=== PATIENT | male | born 1945 | race Caucasian/White ===

== ENCOUNTER 2017-11-02 19:40 | Inpatient (IN) | payer OTHER ==
[~2017-11-02] VITALS: Ht 177.8 cm; Wt 85.0 kg
[~2017-11-02 19:40] MED LIST: ALLOPURINOL100 MG PO; ASPIR 8181 M1 PO; CARDIZEM30 MG PO; CENTRUM SILVER1 EAC3 PO; CYANOCOBALAM1000 MCG PO; DIOVAN320 MG PO; ELIQUIS5 MG PO; FISH OIL 1,0001 EAC7 PO; GABAPENTIN300 MG PO; LIPITOR80 MG PO; METOPROLOL TART25 MG PO; PLAVIX75 MG PO; RANITIDINE HCL150 MG PO; TYLENOL ARTHRI650 MG PO; VITAMIN D32000 UNI1 PO
[2017-11-02 20:29] LABS: HEMATOCRIT 32.7 % (38.0-50.0); HEMOGLOBIN 10.8 G/DL (12.5-16.6); MCH 35.4 PG (29.0-34.0); MCV 107.2 FL (86-99); PLATELET COUNT 113 K/uL (156-360); RBC DIS.WIDTH-CV 15.4 % (11.8-14.6); RBC DIS.WIDTH-SD 61.4 % (39-53); RED BLOOD COUNT 3.05 M/uL (4.00-5.50); WHITE BLOOD COUNT 7.9 K/uL (4.1-10.2)
[2017-11-02 20:36] LABS: INTER. NORMALIZED RATIO 1.2
[2017-11-02 20:39] LABS: PTT 30.5 SEC (25-37)
[2017-11-02 20:46] LABS: CHLORIDE 101 mEq/L (99-109); POTASSIUM 4.2 mEq/L (3.7-5.4); SODIUM 132 mEq/L (136-147)
[2017-11-02 20:48] LABS: GLUCOSE 105 mg/dL (70-99)
[2017-11-02 20:50] LABS: TROP-I INTERPRETATION NEGATIVE; TROPONIN-I 0.02 ng/mL (0.0-0.30)
[2017-11-02 20:52] LABS: CREATININE 0.9 mg/dL (0.6-1.3); GFR ESTIMATE (CALCULATED) > 59 mL/min/ (58.99-99999)
[2017-11-02 20:53] LABS: UREA NITROGEN (BUN) 15 mg/dL (9-23)
[2017-11-02] MEDS ORDERED: CARDIZEM120 MG PO (21:30)
[2017-11-02] MEDS ORDERED: DIOVAN320 MG PO (21:31)
[2017-11-02] MEDS ORDERED: PROAIR RESPICL90 MCG IH (21:32)
[2017-11-02] MEDS ORDERED: HYDROCORTISONE30 G1 TP (21:32)
[2017-11-02] MEDS ORDERED: VISTARIL50 MG PO (21:33)
[2017-11-02] MEDS ORDERED: PLAVIX75 MG PO (21:37)
[2017-11-03] MEDS ORDERED: ASCORBIC ACID500 M3 PO (00:02)
[2017-11-03 06:30] LABS: TROP-I INTERPRETATION NEGATIVE; TROPONIN-I 0.02 ng/mL (0.0-0.30)
[2017-11-03 12:14] LABS: TROP-I INTERPRETATION NEGATIVE; TROPONIN-I 0.03 ng/mL (0.0-0.30)
[2017-11-03 17:42] LABS: TROP-I INTERPRETATION NEGATIVE; TROPONIN-I 0.01 ng/mL (0.0-0.30)
[2017-11-03 17:43] VITALS: BP 125/61
[2017-11-03 19:29] VITALS: BP 116/53
[2017-11-03 19:35] VITALS: BP 128/62
[2017-11-03 23:27] LABS: APPEARANCE SL.HAZY ((CLEAR)); BILIRUBIN NEGATIVE; BLOOD NEGATIVE; COLOR YELLOW ((YELLOW)); GLUCOSE (STRIP) 50; KETONES NEGATIVE; LEUKOCYTES NEGATIVE; NITRITE NEGATIVE; PROTEIN (STRIP) NEGATIVE; SPECIFIC GRAVITY 1.018 (1.000-1.030); UROBILINOGEN 0.2 MG/DL (0.2-1.0)
[2017-11-03 23:33] LABS: BACTERIA NONE SEEN /HPF; EPITHELIAL CELLS RARE /HPF; MUCUS TRACE /LPF; RED BLOOD CELLS 0-5 /HPF (0-5); UCUL ADDED? NO; WHITE BLOOD CELLS 0-5 /HPF (0-5)
[2017-11-04] VITALS (7 sets, daily range): BP systolic 106–140; BP diastolic 53–64
[2017-11-04 05:43] LABS: BASOPHIL (%) 0 % (0-1); EOSINOPHIL (%) 0 % (0-5); HEMATOCRIT 27.6 % (38.0-50.0); HEMOGLOBIN 9.1 G/DL (12.5-16.6); IMMATURE GRANULOCYTE (%) 0.1 % (0.0-0.7); LYMPHOCYTE (%) 13.7 % (15-42); MCH 35.1 PG (29.0-34.0); MCV 106.6 FL (86-99); MONOCYTE (%) 7.4 % (3-12); MONOCYTE COUNT 0.5 K/uL (0-0.8); NEUTROPHIL (%) 78.8 % (45-76); NEUTROPHIL COUNT 5.6 K/uL (1.8-6.4); PLATELET COUNT 106 K/uL (156-360); RBC DIS.WIDTH-CV 15.6 % (11.8-14.6); RBC DIS.WIDTH-SD 61.4 % (39-53); RED BLOOD COUNT 2.59 M/uL (4.00-5.50); WHITE BLOOD COUNT 7.2 K/uL (4.1-10.2)
[2017-11-04 06:07] LABS: CHLORIDE 102 MEQ/L (99-109); CREATININE 1.3 MG/DL (0.6-1.3); GFR ESTIMATE (CALCULATED) 58 mL/min/ (58.99-99999); GLUCOSE 157 mg/dL (70-99); POTASSIUM 3.9 MEQ/L (3.7-5.4); SODIUM 134 MEQ/L (136-147)
[2017-11-04 06:08] LABS: UREA NITROGEN (BUN) 29 mg/dL (9-23)
[2017-11-05 03:37] VITALS: BP 129/59
[2017-11-05 08:52] LABS: HEMATOCRIT 32.1 % (38.0-50.0); HEMOGLOBIN 10.4 G/DL (12.5-16.6); MCH 34.8 PG (29.0-34.0); MCHC 32.4 G/DL (30.0-36.0); MCV 107.4 FL (86-99); PLATELET COUNT 119 K/uL (156-360); RBC DIS.WIDTH-CV 15.8 % (11.8-14.6); RBC DIS.WIDTH-SD 62.7 % (39-53); RED BLOOD COUNT 2.99 M/uL (4.00-5.50); WHITE BLOOD COUNT 8.2 K/uL (4.1-10.2)
[2017-11-05 08:53] VITALS: BP 177/83
[2017-11-05 09:15] LABS: CHLORIDE 102 MEQ/L (99-109); CREATININE 1.1 MG/DL (0.6-1.3); GFR ESTIMATE (CALCULATED) > 59 mL/min/ (58.99-99999); GLUCOSE 164 mg/dL (70-99); SODIUM 140 MEQ/L (136-147); UREA NITROGEN (BUN) 27 mg/dL (9-23)
[2017-11-05 10:50] VITALS: BP 147/64
[2017-11-05 17:25] VITALS: BP 140/76
[2017-11-05 19:30] VITALS: BP 142/67
[2017-11-05 23:38] VITALS: BP 128/60
[2017-11-06 03:32] VITALS: BP 113/57
[2017-11-06 06:23] LABS: BASOPHIL (%) 0 % (0-1); EOSINOPHIL (%) 0 % (0-5); HEMATOCRIT 29.7 % (38.0-50.0); HEMOGLOBIN 9.8 G/DL (12.5-16.6); IMMATURE GRANULOCYTE (%) 0.2 % (0.0-0.7); LYMPHOCYTE (%) 14.3 % (15-42); LYMPHOCYTE COUNT 1.2 K/uL (1.0-2.8); MCH 35.1 PG (29.0-34.0); MCV 106.5 FL (86-99); MONOCYTE COUNT 0.3 K/uL (0-0.8); NEUTROPHIL (%) 81.5 % (45-76); NEUTROPHIL COUNT 6.8 K/uL (1.8-6.4); PLATELET COUNT 113 K/uL (156-360); RBC DIS.WIDTH-CV 15.4 % (11.8-14.6); RBC DIS.WIDTH-SD 60.8 % (39-53); RED BLOOD COUNT 2.79 M/uL (4.00-5.50); WHITE BLOOD COUNT 8.3 K/uL (4.1-10.2)
[2017-11-06 06:57] LABS: CHLORIDE 107 MEQ/L (99-109); CREATININE 0.8 MG/DL (0.6-1.3); GFR ESTIMATE (CALCULATED) > 59 mL/min/ (58.99-99999); GLUCOSE 143 mg/dL (70-99); SODIUM 139 MEQ/L (136-147); UREA NITROGEN (BUN) 35 mg/dL (9-23)
[2017-11-06 07:51] VITALS: BP 142/74
[2017-11-06] MEDS ORDERED: CEFTIN500 MG PO (13:51)
[2017-11-06] MEDS ORDERED: AZITHROMYCIN500 M1 PO (13:51)
[2017-11-06] MEDS ORDERED: MUCINEX600 MG PO (13:52)
[2017-11-06] MEDS ORDERED: PREDNISONE20 MG PO (13:52)
[2017-11-06] MEDS ORDERED: FUROSEMIDE40 MG PO (13:52)
[2017-11-06] MEDS ORDERED: LOPRESSOR50 MG PO (13:55)
[2017-11-06] MEDS ORDERED: DIGOXIN125 MCG PO (13:57)
== END 2017-11-06 15:05 | disposition home or self-care (01) | DRG 291 ==
LOC: EME 19:40 → 4EAST 11-03 00:10 → EDOF 11-03 00:10 → ENRESERV 11-03 00:12 → 4EAST 11-03 17:32
PROVIDERS: Hospitalist; Internal Medicine; Physician Assistant Medical
DX: I50.9 Heart failure, unspecified (principal); J44.1 Chronic obstructive pulmonary disease with (acute) exacerbation; J18.9 Pneumonia, unspecified organism; I48.91 Unspecified atrial fibrillation; J44.0 Chronic obstructive pulmonary disease with (acute) lower respiratory infection; J96.01 Acute respiratory failure with hypoxia; I25.2 Old myocardial infarction; I11.0 Hypertensive heart disease with heart failure; I73.9 Peripheral vascular disease, unspecified; Z87.891 Personal history of nicotine dependence; Z98.61 Coronary angioplasty status; Z98.1 Arthrodesis status; Z86.73 Personal history of transient ischemic attack (TIA), and cerebral infarction without residual deficits; I25.10 Atherosclerotic heart disease of native coronary artery without angina pectoris; Z79.01 Long term (current) use of anticoagulants; J90 Pleural effusion, not elsewhere classified; E78.5 Hyperlipidemia, unspecified; M21.379 Foot drop, unspecified foot; H54.61 Unqualified visual loss, right eye, normal vision left eye; M10.9 Gout, unspecified; K21.9 Gastro-esophageal reflux disease without esophagitis
CPT/HCPCS: 71046; 71250; 80048; 81003; 83880; 84484; 85025; 85027; 85610; 85730; 93005; 93306; 94640; 94640 76; 94799; 99202; 99281; 99285; J0456; J0692; J0696; J1940; J2920; J2930